=== PATIENT | female | born 1945 | race Caucasian/White ===

== ENCOUNTER 2021-03-06 05:01 | Emergency (ER) | payer MEDICARE ==
[~2021-03-06] VITALS: Ht 167.6 cm; Wt 63.5 kg
--- NOTE | 2021-03-06 05:13 | NUR ---
MD Richards in room doing MSE.
[2021-03-06] MEDS ORDERED: CLONIDINE HCL 0.1 MG TABLET PO ONE (05:30)
[2021-03-06] MEDS ORDERED: OXYCODONE/APAP 5-325 MG TABLET PO ONE (05:30)
[2021-03-06] MEDS ORDERED: MIRA25TA PO (05:31)
[2021-03-06] MEDS ORDERED: AZIT250T13 PO (05:31)
[2021-03-06] MEDS ORDERED: IBUP-1953 PO (05:31)
[2021-03-06] MEDS ORDERED: ALBU18HF2 INH (05:31)
[2021-03-06] MEDS ORDERED: SERT50TA PO (05:31)
[2021-03-06] MEDS ORDERED: SIMV10TA98 PO (05:31)
[2021-03-06] MEDS ORDERED: APIX5TAB PO (05:31)
[2021-03-06] MEDS ORDERED: MG T1TAB4 PO (05:31)
[2021-03-06] MEDS ORDERED: FAMO20TA8 PO (05:31)
[2021-03-06] MEDS ORDERED: LORA10TA7 PO (05:31)
[2021-03-06] MEDS ORDERED: HYDR-3976 PO (05:31)
[2021-03-06] MEDS ORDERED: LORA-259 PO (05:31)
[2021-03-06 06:02] LABS: HEMATOCRIT 32.6 % (31.2-41.9); MEAN CORPUSCULAR HEMOGLOBIN 30.2 uug (24.7-32.8); PLATELET COUNT (AUTO) 223 K/uL (179-408)
[2021-03-06] MEDS ORDERED: CLONIDINE HCL 0.1 MG TABLET ONE (06:02)
[2021-03-06] MEDS ORDERED: OXYCODONE/APAP 5-325 MG TABLET ONE (06:03)
--- NOTE | 2021-03-06 06:04 | NUR ---
Patient taken by customer technical services manager out for CT scan and x-ray.
[2021-03-06 06:10] LABS: CREATININE 1.1 mg/dL (0.6-1.3)
[2021-03-06 06:16] LABS: BILIRUBIN,DIRECT 0.1 mg/dL (0.0-0.2); BILIRUBIN,TOTAL 0.4 mg/dL (0.2-1.0); TOTAL PROTEIN, SERUM 6.8 g/dL (6.4-8.2)
[2021-03-06] MEDS ORDERED: HYDR-500 GT (06:17)
[2021-03-06] MEDS ORDERED: OXYC-128 PO (06:17)
[2021-03-06] MEDS ORDERED: CLON0.1T PO (06:17)
--- NOTE | 2021-03-06 06:21 | NUR ---
Patient returned from CT scan & X-ray.
[2021-03-06 07:05] VITALS: BP 154/68
--- NOTE | 2021-03-06 07:05 | NUR ---
Patient discharged to home in stable condition. Written and verbal after care instructions given. Patient verbalizes understanding of instructions. Stressed follow up or return to ER for worsening s/s. Patient ambulates with steady gait, V/S stable, IV line removed, received paper Rx, and left with all personal belongings.
== END 2021-03-06 07:05 | disposition home or self-care (01) ==
LOC: ER 05:05
DX: I10 Essential (primary) hypertension (principal); R51.9 Headache, unspecified; R00.1 Bradycardia, unspecified; J43.9 Emphysema, unspecified; Z87.01 Personal history of pneumonia (recurrent); F32.9 Major depressive disorder, single episode, unspecified; F41.9 Anxiety disorder, unspecified; Z88.0 Allergy status to penicillin; Z88.2 Allergy status to sulfonamides; Z88.9 Allergy status to unspecified drugs, medicaments and biological substances; Z79.899 Other long term (current) drug therapy; I48.91 Unspecified atrial fibrillation; Z79.01 Long term (current) use of anticoagulants
CPT/HCPCS: 36415; 70450; 71045; 83605; 85025; 93005; A4663